=== PATIENT | female | born 1975 ===

== ENCOUNTER 2021-04-08 08:40 | Outpatient (CLI) | payer OTHER | END 2021-04-08 09:00 | disposition home or self-care (01) | LOC: MAMO-SONO 08:40 | PROVIDERS: ATTEND Family Medicine | DX: N64.59 Other signs and symptoms in breast (principal); Z87.898 Personal history of other specified conditions; Z12.31 Encounter for screening mammogram for malignant neoplasm of breast; N60.41 Mammary duct ectasia of right breast; N60.11 Diffuse cystic mastopathy of right breast; N60.12 Diffuse cystic mastopathy of left breast ==

== ENCOUNTER 2023-10-30 12:54 | Outpatient (CLI) | payer OTHER | END 2023-10-30 13:00 | disposition home or self-care (01) | LOC: SONOGRAMA 12:54 | PROVIDERS: ATTEND Family Medicine | DX: N93.9 Abnormal uterine and vaginal bleeding, unspecified (principal) ==

== ENCOUNTER 2023-11-03 10:31 | Outpatient (CLI) | payer OTHER | END 2023-11-03 10:39 | disposition home or self-care (01) | LOC: RAD 10:31 | PROVIDERS: ATTEND Internal Medicine Rheumatology | DX: M75.82 Other shoulder lesions, left shoulder (principal) ==

== ENCOUNTER 2024-10-29 08:02 | Outpatient (CLI) | payer OTHER | END 2024-10-29 08:03 | disposition home or self-care (01) | LOC: NUCLEAR 08:02 | DX: I20.9 Angina pectoris, unspecified (principal) ==